=== PATIENT | female | born 1960 | race Caucasian/White ===

== ENCOUNTER 2016-09-10 11:13 | Observation (INO) | payer OTHER ==
[2016-09-10] VITALS (9 sets, daily range): BP systolic 115–228; BP diastolic 65–107; PULSE 74–100; RESP 14–20; TEMP 97.7–98.1; O2SAT 95–100
[~2016-09-10] VITALS: Ht 157.5 cm; Wt 55.0 kg
[~2016-09-10 11:13] MED LIST: ALBU8I INH; BUTA1CAP PO; CITRTAB8 PO; CLON0.1T PO; DIAZ2 PO; ESTR1.5 PO; ROSU40 PO; TOPI100 PO
[2016-09-10] MEDS ORDERED: ASPIRIN 81 MG CHEW TAB PO ONE (11:30)
[2016-09-10] MEDS ORDERED: SODIUM CHLORIDE 0.9% FLUSH 5 ML FLUSH IVF PRN ×2 (11:30→16:30)
[2016-09-10] MEDS: NITROGLYCERIN 0.4 MG SL 25 TABS/BTL SL SCH ×3 (11:35→12:18)
--- NOTE | 2016-09-10 11:35 | PD ---
HPI Chief Complaint: Chest Pain Time Seen by Provider: 11:31 Travel History International Travel<30 days: No Contact w/Intl Traveler<30days: No Traveled to known affect area: No History of Present Illness HPI Patient comes in complaining of continued chest pain and uncontrolled hypertension ongoing since being seen here previously on the of last month. Patient states he is followed up with her primary care doctor had her blood pressure medicine adjustment however her blood pressure continues to run high and she continues to have chest pain is worse with past couple of days. Patient was referred to a court recorder but is unable to get in until the end of this month and was recommended comes emergency Department. Patient reports increased dyspnea on exertion as well as palpitations when she raises her arms above her head and a continued headache. Denies any nausea, vomiting, diaphoresis, numbness or tingling anywhere. Patient reports last stress test was 2013. Patient reports her mother had heart attack at age 52. PFSH Past Medical History Heart Rhythm Problems: No Cardiac Catheterization: No Cardiovascular Problems: No High Cholesterol: Yes Congestive Heart Failure: No Diabetes: No Diminished Hearing: Yes (DEAF/HEARING AIDS COCHLEAR IMPLANTS) Heparin Induced Thrombocytopen: No Hypertension: Yes Kidney Stones: Yes Musculoskeletal: Yes (OSTEOPOROSIS; LUMBAR "PERISPINAL CYST") Immunizations Current: No Migraines: Yes Myocardial Infarction: No Menopausal: Yes Past Surgical History Abdominal Surgery: Yes (LAPROSCOPIC LYSIS OF ABDOMINAL ADHESIONS X2) Appendectomy: Yes Section: Yes (X1) Cholecystectomy: Yes Coronary Artery Bypass Graft: No Ear Surgery: Yes (COCHLEAR IMPLANT R. SIDE) Genitourinary Surgery: Yes (RIGHT URETERAL STENT PLACEMENT AND REMOVAL) Hysterectomy: Yes Other Surgery: Yes (X2 CRANIOTOMIES) Social History Alcohol Use: Yes (RARE) Tobacco Use: No Substance Use: No Allergies-Medications (Allergen,Severity, Reaction): Coded Allergies: Codeine (Verified Allergy, Severe, Hives, 09/10/16) Morphine (Verified Allergy, Severe, Nausea/Vomiting/ HIVES, 09/10/16) Reported Meds & Prescriptions Reported Meds & Active Scripts Active Reported Ogestrel (Norgestrel-Ethinyl Estradiol) 0.5-50 Mg-Mcg Tab 1.5 Tab PO DAILY Crestor (Rosuvastatin Calcium) 10 Mg Tab 10 Mg PO HS Topamax (Topiramate) 50 Mg Tab 50 Mg PO HS Topamax (Topiramate) 25 Mg Tab 25 Mg PO DAILY Effer-K (Potassium Bicarbonate-Citric Acid) 10 Meq Tab 10 Mg PO DAILY Hydrochlorothiazide 25 Mg Tab 25 Mg PO DAILY Losartan (Losartan Potassium) 50 Mg Tab 50 Mg PO HS Review of Systems Except as stated in HPI: all other systems reviewed are Neg Physical Exam Narrative GENERAL: Well-developed, well nourished, in no acute distress, and non-ill appearing. SKIN: Warm and dry. HEAD: Atraumatic. Normocephalic. EYES: Pupils equal and round. EOMI. No scleral icterus. No injection or drainage. ENT: No nasal bleeding or discharge. Mucous membranes pink and moist. NECK: Trachea midline. No JVD. Supple. No nuclear rigidity. CARDIOVASCULAR: Regular rate and rhythm. No murmur appreciated. No pedal edema. RESPIRATORY: No accessory muscle use. No respiratory distress. Clear to auscultation. Breath sounds equal bilaterally. GASTROINTESTINAL: Abdomen soft, non-tender, nondistended. Hepatic and splenic margins not palpable. Normal bowel sounds 4. No pulsatile mass. MUSCULOSKELETAL: No obvious deformities. No clubbing. No cyanosis. No edema. Full range of motion. NEUROLOGICAL: Awake and alert. No obvious cranial nerve deficits. Motor grossly within normal limits. Normal speech. PSYCHIATRIC: Appropriate mood and affect; insight and judgment normal. Data Data Last Documented VS Vital Signs Date Time Temp Pulse Resp B/P Pulse Ox O2 Delivery O2 Flow Rate FiO2 09/10/16 12:25 81 16 149/77 99 2 09/10/16 11:54 Nasal Cannula 09/10/16 11:16 98.1 Orders Electrocardiogram (09/10/16 11:29) Basic Metabolic Panel (Bmp) (09/10/16 11:29) B-Type Natriuretic Peptide (09/10/16 11:29) Ckmb (Isoenzyme) Profile (09/10/16 11:29) Complete Blood Count With Diff (09/10/16 11:29) Magnesium (Mg) (09/10/16 11:29) Prothrombin Time / Inr (Pt) (09/10/16 11:29) Act Partial Throm Time (Ptt) (09/10/16 11:29) Troponin I (09/10/16 11:29) Chest, Single Ap (09/10/16 11:29) Ecg Monitoring (09/10/16 11:29) Bilateral Bp Monitoring (09/10/16 11:29) Iv Access Insert/Monitor (09/10/16 11:29) Oximetry (09/10/16 11:29) Oxygen Administration (09/10/16 11:29) Aspirin Chew (Aspirin Chew) (09/10/16 11:30) Sodium Chloride 0.9% Flush (Ns Flush) (09/10/16 11:30) Nitroglycerin Sl (Nitrostat Sl) (09/10/16 11:30) Ct Brain W/O Iv Contrast(Rout) (09/10/16 ) Labetalol Inj (Trandate Inj) (09/10/16 12:30) Admit Order (Ed Use Only) (09/10/16 13:38) Labs Laboratory Tests Test 09/10/16 12:20 White Blood Count 4.7 TH/MM3 Red Blood Count 5.38 MIL/MM3 Hemoglobin 14.7 GM/DL Hematocrit 43.0 % Mean Corpuscular Volume 80.1 FL Mean Corpuscular Hemoglobin 27.3 PG Mean Corpuscular Hemoglobin 34.1 % Concent Red Cell Distribution Width 13.7 % Platelet Count 172 TH/MM3 Mean Platelet Volume 8.6 FL Neutrophils (%) (Auto) 58.7 % Lymphocytes (%) (Auto) 28.4 % Monocytes (%) (Auto) 10.6 % Eosinophils (%) (Auto) 1.4 % Basophils (%) (Auto) 0.9 % Neutrophils # (Auto) 2.7 TH/MM3 Lymphocytes # (Auto) 1.3 TH/MM3 Monocytes # (Auto) 0.5 TH/MM3 Eosinophils # (Auto) 0.1 TH/MM3 Basophils # (Auto) 0.0 TH/MM3 CBC Comment DIFF FINAL Differential Comment Prothrombin Time 10.5 SEC Prothromb Time International 1.0 RATIO Ratio Activated Partial 24.0 SEC Thromboplast Time Sodium Level 141 MEQ/L Potassium Level 3.5 MEQ/L Chloride Level 101 MEQ/L Carbon Dioxide Level 31.6 MEQ/L Anion Gap 8 MEQ/L Blood Urea Nitrogen 18 MG/DL Creatinine 1.05 MG/DL Estimat Glomerular Filtration 54 ML/MIN Rate Random Glucose 94 MG/DL Calcium Level 10.5 MG/DL Magnesium Level 2.0 MG/DL Total Creatine Kinase 81 U/L Troponin I LESS THAN 0.02 NG/ML B-Type Natriuretic Peptide 3 PG/ML MDM Medical Decision Making Medical Screen Exam Complete: Yes Emergency Medical Condition: Yes Interpretation(s) EKG reviewed by Dr. Bhatti, shows sinus rhythm with ventricular rate of 82. No STEMI and no acute changes. Differential Diagnosis Acute coronary syndrome, hypertension urgency, hypertensive emergency, CHF, other Narrative Course 1305 patient reports resolution symptoms status post nitroglycerin sublingual. Patient currently denies any symptoms. Patient seen and examined. Laboratory reflexes were obtained and reviewed. Patient symptoms resolved status post sublingual nitroglycerin. This chest pain center for further treatment and evaluation. Discussed patient with Dr. Bhatti, who saw evaluate the patient is agreeable with plan of care and disposition. Discussed all findings and plan of care with patient is agreeable for admission. All questions were answered. Diagnosis Primary Impression: Chest pain Qualified Code: R07.9 - Chest pain, unspecified type Additional Impression: Hypertension Qualified Code: I10 - Essential hypertension Larry Hardin Sep 10, 2016 11:34
[2016-09-10] MEDS ORDERED: ROSU10 PO (12:02)
[2016-09-10] MEDS ORDERED: HYDR25TA5 PO (12:02)
[2016-09-10] MEDS ORDERED: OGESTAB PO (12:02)
[2016-09-10] MEDS ORDERED: TOPA25TA8 PO (12:02)
[2016-09-10] MEDS ORDERED: TOPA50TA7 PO (12:02)
[2016-09-10] MEDS ORDERED: LOSA50TA PO (12:02)
[2016-09-10] MEDS ORDERED: EFFE10TA PO (12:02)
[2016-09-10] MEDS ORDERED: LABETALOL HCL 100 MG/20 ML VIAL IV PUSH ONE (12:30)
[2016-09-10 12:48] LABS: AUTOMATED NEUTROPHIL # 2.7 TH/MM3 (1.8-7.7); BASOPHIL % 0.9 % (0.0-2.0); EOSINOPHIL # 0.1 TH/MM3 (0-0.4); EOSINOPHIL % 1.4 % (0.0-4.0); HEMO FLAGS DIFF FINAL; LYMPH % 28.4 % (9.0-44.0); LYMPHOCYTE # 1.3 TH/MM3 (1.0-4.8); MEAN CELL VOLUME 80.1 FL (80.0-100.0); MEAN CORPUSCULAR HEMOGLOBIN 27.3 PG (27.0-34.0); MEAN CORPUSCULAR HGB CONC 34.1 % (32.0-36.0); MONO % 10.6 % (0.0-8.0); NEUT % 58.7 % (16.0-70.0); PLATELET COUNT 172 TH/MM3 (150-450); RED BLOOD COUNT 5.38 MIL/MM3 (4.00-5.30); RED CELL DISTRIBUTION WIDTH 13.7 % (11.6-17.2); WHITE BLOOD COUNT 4.7 TH/MM3 (4.0-11.0)
--- NOTE | 2016-09-10 12:49 | RADRPT ---
EXAM DATE/TIME: 09/10/2016 11:48 [facility] COMPARISON: CHEST SINGLE AP, August 16, 2016, 12:14. INDICATIONS : Chest pain in middle of chest today MEDICAL HISTORY : Hypertension. SURGICAL HISTORY : Craniotomy. cochlear implants ENCOUNTER: Initial ACUITY: 1 day PAIN SCORE: 10/10 LOCATION: Bilateral chest FINDINGS: A single view of the chest demonstrates the lungs to be symmetrically aerated without evidence of mas s, infiltrate or effusion. The cardiomediastinal contours are unremarkable. Osseous structures are intact. CONCLUSION: No acute disease. Alcon Ruiz MD on September 10, 2016 at 12:48 Board Certified Radiologist. This report was verified electronically.
[2016-09-10 12:53] LABS: PROTHROMBIN TIME - PATIENT 10.5 SEC (9.8-11.6)
[2016-09-10 13:13] LABS: ANION GAP 8 MEQ/L (5-15); BICARBONATE 31.6 MEQ/L (21.0-32.0); BLOOD UREA NITROGEN 18 MG/DL (7-18); CHLORIDE 101 MEQ/L (98-107); GLOMERULAR FILTRATION RATE 54 ML/MIN (>89); SODIUM (NA) 141 MEQ/L (136-145)
[2016-09-10 13:30] LABS: CREATINE KINASE 81 U/L (26-192); POTASSIUM 3.5 MEQ/L (3.5-5.1)
[2016-09-10] MEDS ORDERED: NITROGLYCERIN 2% OINT 1 GM PACKET TOP ONE (14:00)
--- NOTE | 2016-09-10 14:08 | PD ---
Data Data Last Documented VS Vital Signs Date Time Temp Pulse Resp B/P Pulse Ox O2 Delivery O2 Flow Rate FiO2 09/10/16 13:39 75 20 162/80 99 Nasal Cannula 2 09/10/16 11:16 98.1 Orders Electrocardiogram (09/10/16 11:29) Basic Metabolic Panel (Bmp) (09/10/16 11:29) B-Type Natriuretic Peptide (09/10/16 11:29) Ckmb (Isoenzyme) Profile (09/10/16 11:29) Complete Blood Count With Diff (09/10/16 11:29) Magnesium (Mg) (09/10/16 11:29) Prothrombin Time / Inr (Pt) (09/10/16 11:29) Act Partial Throm Time (Ptt) (09/10/16 11:29) Troponin I (09/10/16 11:29) Chest, Single Ap (09/10/16 11:29) Ecg Monitoring (09/10/16 11:29) Bilateral Bp Monitoring (09/10/16 11:29) Iv Access Insert/Monitor (09/10/16 11:29) Oximetry (09/10/16 11:29) Oxygen Administration (09/10/16 11:29) Aspirin Chew (Aspirin Chew) (09/10/16 11:30) Sodium Chloride 0.9% Flush (Ns Flush) (09/10/16 11:30) Nitroglycerin Sl (Nitrostat Sl) (09/10/16 11:30) Ct Brain W/O Iv Contrast(Rout) (09/10/16 ) Labetalol Inj (Trandate Inj) (09/10/16 12:30) Admit Order (Ed Use Only) (09/10/16 13:38) Labs Laboratory Tests Test 09/10/16 12:20 White Blood Count 4.7 TH/MM3 Red Blood Count 5.38 MIL/MM3 Hemoglobin 14.7 GM/DL Hematocrit 43.0 % Mean Corpuscular Volume 80.1 FL Mean Corpuscular Hemoglobin 27.3 PG Mean Corpuscular Hemoglobin 34.1 % Concent Red Cell Distribution Width 13.7 % Platelet Count 172 TH/MM3 Mean Platelet Volume 8.6 FL Neutrophils (%) (Auto) 58.7 % Lymphocytes (%) (Auto) 28.4 % Monocytes (%) (Auto) 10.6 % Eosinophils (%) (Auto) 1.4 % Basophils (%) (Auto) 0.9 % Neutrophils # (Auto) 2.7 TH/MM3 Lymphocytes # (Auto) 1.3 TH/MM3 Monocytes # (Auto) 0.5 TH/MM3 Eosinophils # (Auto) 0.1 TH/MM3 Basophils # (Auto) 0.0 TH/MM3 CBC Comment DIFF FINAL Differential Comment Prothrombin Time 10.5 SEC Prothromb Time International 1.0 RATIO Ratio Activated Partial 24.0 SEC Thromboplast Time Sodium Level 141 MEQ/L Potassium Level 3.5 MEQ/L Chloride Level 101 MEQ/L Carbon Dioxide Level 31.6 MEQ/L Anion Gap 8 MEQ/L Blood Urea Nitrogen 18 MG/DL Creatinine 1.05 MG/DL Estimat Glomerular Filtration 54 ML/MIN Rate Random Glucose 94 MG/DL Calcium Level 10.5 MG/DL Magnesium Level 2.0 MG/DL Total Creatine Kinase 81 U/L Troponin I LESS THAN 0.02 NG/ML B-Type Natriuretic Peptide 3 PG/ML MDM Supervised Visit with DOM: Yes Narrative Course The history, exam, and medical decision-making in the associated mid-level provider note were completed with my assistance. I reviewed and agree with the findings presented. I attest that I had a [id number] encounter with the patient on the same day, and personally performed and documented my assessment and findings in the medical record. *My assessment and Findings: 55 year-old woman with chest pain, ongoing for some time. She associates it with elevated blood pressure. She's had trouble with this in the past. Her last stress test was 2 years ago. She describes crushing pressure-like chest pain. I don't think this is probably cardiac but it's difficult to ignore. There is no evidence of dissection PE. We'll plan on labs, x-ray, nitroglycerin , admission to the chest pain Center. Diagnosis Primary Impression: Chest pain Qualified Code: R07.9 - Chest pain, unspecified type Additional Impression: Hypertension Qualified Code: I10 - Essential hypertension Bola Bhatti MD Sep 10, 2016 14:08
--- NOTE | 2016-09-10 14:10 | RADRPT ---
EXAM DATE/TIME: 09/10/2016 12:51 [facility] COMPARISON: CT BRAIN W/O CONTRAST, August 16, 2016, 11:36. INDICATIONS : Cephalgia. RADIATION DOSE: 56.35 CTDIvol (mGy) MEDICAL HISTORY : Hypertension. SURGICAL HISTORY : Cochlear implants. ENCOUNTER: Initial ACUITY: 1 day PAIN SCALE: 5/10 LOCATION: cranial TECHNIQUE: Multiple contiguous axial images were obtained of the head. Using automated exposure control and adj ustment of the mA and/or kV according to patient size, radiation dose was kept as low as reasonably a chievable to obtain optimal diagnostic quality images. FINDINGS: CEREBRUM: The ventricles are normal for age. No evidence of midline shift, mass lesion, hemorrhage or acute in farction. No extra-axial fluid collections are seen. POSTERIOR FOSSA: The cerebellum and brainstem are intact. The 4th ventricle is midline. The cerebellopontine angle i s unremarkable. EXTRACRANIAL: The visualized portion of the orbits is intact. Bilateral electronic type devices believed to relate to cochlear implants are seen over the parietal scalp regions bilaterally with leads extending into t he Guillermo temporal bones. SKULL: The calvaria is intact. No evidence of skull fracture. CONCLUSION: 1. No acute intracranial abnormality is seen. 2. Bilateral cochlear implants. Alcon Ruiz MD on September 10, 2016 at 14:05 Board Certified Radiologist. This report was verified electronically.
[2016-09-10] MEDS ORDERED: ACETAMINOPHEN/HYDROcodone 325 MG/7.5 MG TAB PO PRN (16:30)
[2016-09-10] MEDS ORDERED: ACETAMINOPHEN 500 MG CPLT PO PRN (16:30)
[2016-09-10] MEDS ORDERED: cloNIDine HCL 0.1 MG TAB PO PRN (16:30)
[2016-09-10] MEDS ORDERED: ONDANSETRON HCL 4 MG/2 ML VIAL IV PRN (16:30)
[2016-09-10] MEDS ORDERED: RESP: ALBUTEROL 2.5 MG/IPRATROPIUM 0.5 MG NEB (PRN) INH (16:30)
[2016-09-10] MEDS ORDERED: ALPRAZolam 0.25 MG TAB PO PRN (16:30)
[2016-09-10] MEDS: SODIUM CHLORIDE 0.9% FLUSH 5 ML FLUSH IVF SCH (20:03)
[2016-09-11 02:46] VITALS: BP 127/81; PULSE 87; RESP 18; TEMP 98; O2SAT 96
[2016-09-11 04:00] VITALS: BP 128/76; PULSE 74; RESP 21; TEMP 98; O2SAT 98
[2016-09-11] MEDS: SODIUM CHLORIDE 0.9% FLUSH 5 ML FLUSH IVF SCH (08:23)
--- NOTE | 2016-09-11 08:45 | MH ---
cc: ARELY CORONEL MD DATE OF ADMISSION: 09/10/2016 CHIEF COMPLAINT: Hypertension and chest pain. HISTORY OF PRESENT ILLNESS: The patient is a 55 year-old female who states she has been dealing with elevated blood pressures over the last couple of weeks. She came in on August 16, with complaint of having a headache and her blood pressure was taken and it was high. She was prescribed medication for her blood pressure and was sent home to follow up with her primary care physician. She follows up with a provider that was covering for her primary care physician and was placed on Losartan. It still was not working. That medicine was increased by her PCP, Dr. Hever Blackwell. He also added hydrochlorothiazide but her blood pressure still had been running high. She also states she has had a central chest pressure. Initially it was intermittent for about a week but for the last six days it has been constantly there. It is worse if she talks a lot, if she raises her arms above her head or if she exerts herself. She has had no shortness of breath or inspirational chest discomfort, but sometimes it feels like she just needs to catch her breath. She, at times, has been nauseous but no emesis. Denies diaphoresis. She has tried Advil at home for the discomfort. It does help a little bit. She also was initially given some p.r.n. Catapres. She states when she develops a headache, she knows that her blood pressure will be high. She would take the Catapres and the blood pressure would reduce and her headache would resolve. She no longer used the Catapres and is trying to adjust her medication instead. The patient denies history of heart disease. I reviewed her records. She had a heart catheterization in 2005 that revealed normal coronaries. In November of 2009 she had a nonischemic adenosine thallium stress test. In March of 2014, she had a nonischemic Lexiscan. The patient denies any recent travel. She denies sedentary lifestyle. She denies swelling in her legs. PAST MEDICAL HISTORY: Hypertension which was only diagnosed recently, however, she states a couple of years ago she had a brief episode of elevated blood pressures, but resolved. Also she has hyperlipidemia, migraines, kidney stones. Denies diabetes, CAD. FAMILY HISTORY: She states her mother had an RI at age 52. She never had bypass. SOCIAL HISTORY: The patient smoked 25 years ago. Prior to that she smoked [id number] packs of cigarettes for 15 years. She rarely has alcohol. Denies illicit drug use. 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 She is . PAST SURGICAL HISTORY: 1. Cochlear implants. 2. Right ureteral stent and removal secondary to kidney stones. 3. Craniotomy secondary to bony abnormality. 4. Hysterectomy. 5. Appendectomy. 6. 7. Laparoscopic abdominal surgery for adhesions x2. 8. Heart catheterization with no interventions. ALLERGIES CODEINE. MORPHINE She states these cause hives. She states she is able to take Lortab. I asked her several times and she did confirm she can take Lortab. CURRENT MEDICATIONS: 1. Losartan 50 milligrams at night. 2. Hydrochlorothiazide 25 milligrams in the morning. 3. Potassium bicarbonate. 4. Topamax. 5. Crestor. 6. Hormone replacement therapy. REVIEW OF SYSTEMS: GENERAL: Denies fever or chills. Denies recent illness. HEENT: She was complaining of headache and found that to be occurring when her blood pressure is high. Denies visual change. Denies ear ache, sore throat, difficulty swallowing. CARDIOVASCULAR: Describes the discomfort as mentioned above. Denies diaphoresis. Denies sensation of heart beating rapidly or irregular. No syncope. RESPIRATORY: No shortness of breath or inspirational chest discomfort but at times felt as if she is needing to catch her breath. She also states when she is talking a lot the discomfort worsens. Denies cough, wheezing or hemoptysis. GASTROINTESTINAL: Some intermittent nausea but no emesis. Denies abdominal pain. Denies diarrhea, constipation or blood in stool. MUSCULOSKELETAL: Denies joint pain or edema. Denies calf pain or edema. NEUROVASCULAR: Complains of headaches and dizziness. Denies numbness of the extremities. ENDOCRINE: Denies polyuria, polydipsia. HEMATOLOGIC: Denies bruising. SKIN: Denies rash or itching. PHYSICAL EXAMINATION: VITAL SIGNS: In the emergency department initially included a blood pressure 220/107, heart rate 98, respiratory rate 14, pulse oximetry 100% on room air and she was afebrile. Recent vital signs included a blood pressure 115/66, heart rate 75, respiratory rate 16, pulse oximetry 98% on two liters nasal cannula. GENERAL: The patient was seen in the examination room in no apparent distress. She is very pleasant. She speaks in clear and complete sentences. Her is also at the bedside. HEAD, EYES, EARS, NOSE, AND THROAT: Head is atraumatic, normocephalic. NECK: The neck is supple without lymphadenopathy. Trachea is midline. No JVD or carotid bruits. CARDIOVASCULAR: Regular rate and rhythm without gallop or rub. There is a grade 2 systolic murmur left sternal border. RESPIRATORY: Lungs are clear to auscultation bilaterally, no wheezing, rales or rhonchi. No use of accessory muscles. There is no reproducible chest wall discomfort. GASTROINTESTINAL: Abdomen is nontender, nondistended, bowel sounds are normal. No guarding or rebound. No obvious pulsatile masses or bruits. No CVA tenderness. Strong femoral pulses bilaterally. MUSCULOSKELETAL: The patient is moving upper and lower extremities freely. No joint tenderness or edema. No calf tenderness or edema. No Homans' sign. There are strong pulses in upper and lower extremities. NEUROVASCULAR: The patient is alert and oriented, cranial nerves II through XII grossly intact. No focal deficits. Speech is clear. SKIN: No rashes. Turgor is normal. LABORATORY DATA: CBC is unremarkable. Coagulation studies unremarkable. Basic metabolic panel, creatinine is mildly elevated at 1.05. GFR decreased at 54, otherwise essentially unremarkable BNP. First set of cardiac enzymes are normal. BNP is normal at 3. Single view chest x-ray read by radiologist as no acute disease. CT brain read by the radiologist as no acute intracranial abnormality seen. Bilateral cochlear implants. EKG: Sinus rhythm without significant ST segment depressions or elevations. ASSESSMENT AND PLAN: 1. Chest pain. The patient now has constant discomfort in her chest for six days. It does wax and wane somewhat. She will be seen by Dr. Coronel of cardiology of the [facility]. She will spend the night in the [facility]. If she does well then she can proceed with stress testing. Likely will need a Lexiscan in the morning. This will be decided with Dr. Coronel's evaluation. The patient states she has an appointment for a first time visit with Dr. Michaels in a month. She can keep this. 2. Hypertension. Continue current medications. The patient is on Catapres p.r.n. will discuss with Dr. Coronel adjustments or additions to her medications with possible beta-clare or calcium-channel clare. 3. Hyperlipidemia. The patient will continue current medications. 4. Migraines, p.r.n. medication. The patient is stable at this time, she is agreeable to this plan. Dictated by: Pancho Stahl PA-C Bhupinder Metzger/ANGELIA /4:28 PM /8:40 AM
[2016-09-11] MEDS ORDERED: ASPIRIN 325 MG TAB PO SCH (09:00)
[2016-09-11] MEDS ORDERED: REGADENOSON INJ 0.4 MG/5 ML SYR ONE (09:40)
[2016-09-11 10:45] VITALS: BP 139/84; PULSE 80; RESP 16; TEMP 98; O2SAT 100
--- NOTE | 2016-09-11 11:31 | RADRPT ---
EXAM DATE/TIME: 09/11/2016 09:12 [facility] COMPARISON: MYOCARDIAL PERF PHARM SPECT, GATED W/EF, April 08, 2014, 9:14. INDICATIONS : Chest pain with dyspnea upon exertion for last 3 weeks. Angina. DOSE: 25.8 mCi Tc99m Myoview at stress. 8.5 mCi Tc99m Myoview at rest. 0.4 mg Lexiscan STRESS SYMPTOMS: Shortness of breath, headache and nausea. EJECTION FRACTION: 69% MEDICAL HISTORY : Hypercholesterolemia. Hypertension. SURGICAL HISTORY : Hysterectomy. Appendectomy. Cholecystectomy. ENCOUNTER: Initial ACUITY: 3 weeks PAIN SCALE: 6/10 LOCATION: chest TECHNIQUE: The patient underwent pharmacologic stress with infusion of prescribed dose. Continuous ECG tracing was monitored during stress. Gated SPECT imaging was performed after stress and conventional SPECT i maging was performed at rest. The examination was performed on a SPECT/CT scanner, both attenuation and non-corrected datasets were reviewed. FINDINGS: DISTRIBUTION: The best perfused myocardium is the lateral wall followed by the septum and inferior wall. There is extensive defect in the anterior wall. There is no GATED STUDY: There is intact wall motion and thickening without hypokinetic or dyskinetic segments. Ejection frac tion is 69%. CONCLUSION: Negative for stress-induced ischemia. Questionable infarct anterior wall.. RISK CATEGORY: Low (<1% Annual Mortality Rate) Lino Montejo MD FACR on September 11, 2016 at 11:27 Board Certified Radiologist. This report was verified electronically.
--- NOTE | 2016-09-11 11:41 | HHI.DCPOC ---
Discharge Care Plan Diagnosis: (1) Chest pain (2) Hypertension (3) Hyperlipidemia Goals to Promote Your Health * To prevent worsening of your condition and complications * To maintain your health at the optimal level Directions to Meet Your Goals Take your medications as prescribed Follow your dietary instruction Follow activity as directed Keep your appointments as scheduled Take your immunizations and boosters as scheduled If your symptoms worsen call your PCP, if no PCP go to Urgent Care Center or Emergency Room Smoking is Dangerous to Your Health. Avoid second hand smoke Call the 24-hour hour crisis hotline for domestic abuse at Pancho Stahl Sep 11, 2016 11:41
[2016-09-11 12:30] VITALS: PULSE 74
[2016-09-11 13:01] VITALS: BP 127/79; PULSE 82; RESP 16; TEMP 97.9; O2SAT 99
--- NOTE | 2016-09-11 13:23 | TR ---
Date Performed: 09/11/2016 Time Performed: 09:49:00 DOCTOR: Glory Avery DRUG LIST: Delores CLINICAL HISTORY: SOB REASON FOR TEST: Angina REASON FOR ENDING: OBSERVATION: CONCLUSION: Lexiscan stress test was performed under standard four minute protocol. Radionuclid e was injected one minute prior to ending the test. No electrocardiographic abormalities were present to suggest ischemia. Nuclear imaging and interpretation are pending. COMMENTS:
--- NOTE | 2016-09-11 13:28 | EKG ---
Date Performed: 09/10/2016 Time Performed: 18:40:54 PTAGE: 55 years EKG: Sinus rhythm WITH OCCASIONAL SUPRAVENTRICULAR PREMATURE COMPLEXES NONSPECIFIC T-WAVE ABNORMALITY BORDERLINE ECG S suly PREVIOUS TRACING , no significant change noted PREVIOUS TRACIN09/10/2016 14.58 DOCTOR: Glory Avery Interpretating Date/Time 09/11/2016 13:27:32
--- NOTE | 2016-09-11 13:30 | EKG ---
Date Performed: 09/10/2016 Time Performed: 11:42:24 PTAGE: 55 years EKG: Sinus rhythm WITH OCCASIONAL SUPRAVENTRICULAR PREMATURE COMPLEXES BORDERLINE ECG Since PREVIOUS TRACING , no significant change noted PREVIOUS TRACIN08/16/2016 10.55 DOCTOR: Glory Avery Interpretating Date/Time 09/11/2016 13:28:34
--- NOTE | 2016-09-11 13:30 | EKG ---
Date Performed: 09/10/2016 Time Performed: 14:58:06 PTAGE: 55 years EKG: Sinus rhythm NONSPECIFIC T-WAVE ABNORMALITY BORDERLINE ECG Since PREVIOUS TRACING , no significant change noted PREVIOUS TRACIN09/10/2016 11.42 DOCTOR: Glory Avery Interpretating Date/Time 09/11/2016 13:28:24
== END 2016-09-11 14:16 | disposition home or self-care (01) ==
LOC: NEPE 11:13 → NEDA 13:40 → NEPGCP 17:09
PROVIDERS: ADMIT Internal Medicine Interventional Cardiology; ATTEND Internal Medicine Interventional Cardiology
DX: R07.9 Chest pain, unspecified (principal); I10 Essential (primary) hypertension; E78.5 Hyperlipidemia, unspecified; G43.909 Migraine, unspecified, not intractable, without status migrainosus; M81.8 Other osteoporosis without current pathological fracture; Z82.49 Family history of ischemic heart disease and other diseases of the circulatory system
CPT/HCPCS: 70450; 71010; 78452; 80048; 82550; 83735; 83880; 84484; 85025; 85610; 85730; 93005; 93017; 99285; A9502; G0378; J2785

== ENCOUNTER 2016-10-01 07:23 | Day surgery (SDC) | payer OTHER ==
[~2016-10-01] VITALS: Ht 157.5 cm; Wt 57.0 kg
[~2016-10-01 07:23] MED LIST changes: -ALBU8I INH; -BUTA1CAP PO; -CITRTAB8 PO; -CLON0.1T PO; -DIAZ2 PO; +EFFE10TA PO; -ESTR1.5 PO; +HYDR25TA5 PO; +LOSA50TA PO; +OGESTAB PO; +ROSU10 PO; -ROSU40 PO; +TOPA25TA8 PO; +TOPA50TA7 PO; -TOPI100 PO
[2016-10-01] MEDS ORDERED: NS 1000P @30 MLS/HR (KVO) IV SCH (08:00)
[2016-10-01 08:08] VITALS: BP 150/87; PULSE 80; RESP 18; TEMP 98.4; O2SAT 100
[2016-10-01 08:15] LABS: AUTOMATED NEUTROPHIL # 2.6 TH/MM3 (1.8-7.7); BASOPHIL % 0.8 % (0.0-2.0); EOSINOPHIL # 0.1 TH/MM3 (0-0.4); EOSINOPHIL % 1.8 % (0.0-4.0); HEMATOCRIT 38.4 % (35.0-46.0); HEMO FLAGS DIFF FINAL; LYMPH % 27.1 % (9.0-44.0); LYMPHOCYTE # 1.2 TH/MM3 (1.0-4.8); MEAN CORPUSCULAR HEMOGLOBIN 26.8 PG (27.0-34.0); MONO % 10.2 % (0.0-8.0); NEUT % 60.1 % (16.0-70.0); PLATELET COUNT 164 TH/MM3 (150-450); RED BLOOD COUNT 4.75 MIL/MM3 (4.00-5.30); RED CELL DISTRIBUTION WIDTH 13.6 % (11.6-17.2); WHITE BLOOD COUNT 4.4 TH/MM3 (4.0-11.0)
[2016-10-01 08:22] LABS: APTT (PATIENT) 23.8 SEC (24.3-30.1); INTERNATIONAL NORMALIZED RATIO 0.9 RATIO; PROTHROMBIN TIME - PATIENT 10.2 SEC (9.8-11.6)
[2016-10-01] MEDS ORDERED: VENTAER INH (08:27)
[2016-10-01] MEDS ORDERED: TRAM50TA PO (08:27)
[2016-10-01] MEDS ORDERED: NITR0.4S SL (08:27)
[2016-10-01] MEDS ORDERED: ACYC400T PO (08:27)
[2016-10-01] MEDS ORDERED: BUTATAB6 PO (08:30)
[2016-10-01] MEDS ORDERED: IBUP200T2 PO (08:30)
[2016-10-01 08:31] LABS: BICARBONATE 27.4 MEQ/L (21.0-32.0); POTASSIUM 3.4 MEQ/L (3.5-5.1)
[2016-10-01] MEDS ORDERED: HEPARIN-NS/PF INJ 500 ML ONE (08:50)
[2016-10-01] MEDS ORDERED: MIDAZOLAM HCL 2 MG/2 ML VIAL ONE ×2 (08:56→09:15)
[2016-10-01] MEDS ORDERED: HEPARIN SODIUM - IV 10,000 UNITS/10 ML VIAL ONE (08:56)
[2016-10-01] MEDS ORDERED: BACITRACIN OINT 0.9 GM PKT TOP ONE (09:45)
[2016-10-01] MEDS ORDERED: MISC INFORMATION XX ONE (09:45)
--- NOTE | 2016-10-01 09:56 | MA ---
cc: SRAVANTHI MAE MD DATE 10/01/2016 INDICATION Unstable angina PROCEDURES PERFORMED: 1. Left heart catheterization 2. Coronary angiography METHOD The risks, benefits and alternatives discussed with the patient. The patient understood and consented to the procedure. The patient was brought into the catheterization lab and placed on the catheterization table. His right wrist was prepped and draped in a sterile fashion. The right wrist was anesthetized with 2% lidocaine. The right radial artery was cannulated and a 6-Czech, 7 cm sheath was placed without difficulty. 200 mcg of intraarterial nitroglycerin and 2000 units of intravenous heparin was administered. LEFT HEART CATHETERIZATION A 6-Czech JR-5 catheter was advanced across the aortic valve without difficulty. Intraventricular hemodynamics was 110/10 mmHg. CORONARY ANGIOGRAPHY The left coronary circulation was selectively engaged with a 6-Czech JL-3.5 catheter. The right coronary circulation was selectively engaged with a 6-Czech JR-5 catheter. Angiography findings as follows. 1. Left main is very short, almost has a separate ostium for the LAD and the circumflex. It is angiographically normal. 2. Left anterior descending coronary is angiographically normal. 3. Left circumflex gives rise to a first obtuse marginal branch angiographically normal. 4. Right coronary is a dominant vessel giving rise to a posterior descending branch, angiographically normal. CONCLUSIONS 1. Angiographically normal coronaries. 2. Normal left-sided filling pressures. PLAN Despite progressive and suggestive symptoms, her cardiac catheterization shows no significant obstructive disease. RECOMMENDATIONS Noncardiac evaluation. We will continue current medical therapy. MD HOMERO Brown/SAVI /9:37 AM /9:50 AM ISIDRO
[2016-10-01] MEDS ORDERED: IOHEXOL 350 MG/ML 100 ML BTL (for Cath Lab) OTHER ONE (11:00)
--- NOTE | 2016-10-01 17:50 | EKG ---
Date Performed: 10/01/2016 Time Performed: 08:34:50 PTAGE: 55 years EKG: Sinus rhythm with PAC(s) Since previous tracing, no significant change noted Borderline ECG PREVIOUS TRACING : 09/10/2016 18.40 DOCTOR: Elliott Flores Interpretating Date/Time 10/01/2016 17:49:54
== END 2016-10-01 14:28 | disposition home or self-care (01) ==
LOC: HDIC 07:23 → HDOC 07:23
PROVIDERS: ATTEND Internal Medicine
DX: R07.9 Chest pain, unspecified (principal); I10 Essential (primary) hypertension; E78.5 Hyperlipidemia, unspecified; Z87.891 Personal history of nicotine dependence; J45.909 Unspecified asthma, uncomplicated
CPT/HCPCS: 80048; 85025; 85610; 85730; 86850; 86900; 86901; 93005; 93454; C1769; C1893; J1644; J2250; J3010; Q9967